=== PATIENT | male | born 1945 | race Two or more races ===

== ENCOUNTER 2016-09-10 14:03 | Inpatient (IN) | payer MEDICARE, OTHER ==
[~2016-09-10] VITALS: Ht 177.8 cm; Wt 101.2 kg
[~2016-09-10 14:03] MED LIST: ALLO300T PO; ATOR40TA78 PO; DIGO125T PO; LISI-167 PO; METF500T4 PO; METO-99 PO; METO50TA82 PO; TIOT18CA INH; WARF2.5T73 PO; WARF5TAB7 PO
[2016-09-10] MEDS ORDERED: SODIUM CHLORIDE 0.9% 1,000 ML IV ONE ×2 (14:32→15:40)
[2016-09-10] MEDS ORDERED: SODIUM CHLORIDE FLUSH 10ML SYR IVF ONE (15:00)
[2016-09-10] MEDS ORDERED: SODIUM CHLORIDE 0.9% 1,000ML IVBOLUS ONE (15:00)
[2016-09-10 15:02] LABS: BLOOD UREA NITROGEN 58 mg/dL (7-18)
[2016-09-10] MEDS ORDERED: SODIUM CHLORIDE FLUSH 10ML SYR IVF PRN (16:00)
[2016-09-10] MEDS: SODIUM CHLORIDE 0.9% 1,000 ML IV SCH ×2 (16:30→19:32)
[2016-09-10] MEDS ORDERED: LABETALOL 5MG/ML, 20ML IVPush PRN (16:30)
[2016-09-10] MEDS ORDERED: HYDROcodone/APAP 5/325 TABLET PO PRN (16:30)
[2016-09-10] MEDS ORDERED: ONDANSETRON 2MG/ML, 2ML IVPush PRN (16:30)
[2016-09-10] MEDS ORDERED: ONDANSETRON ODT 4 MG PO PRN (16:30)
[2016-09-10] MEDS ORDERED: POLYETHYLENE GLYCOL 17 GM PACKET PO PRN (16:30)
[2016-09-10 19:45] VITALS: BP 103/58
[2016-09-10 19:52] LABS: POTASSIUM,URINE RANDOM 56 mmol/L
[2016-09-10] MEDS ORDERED: IPRATROPIUM 0.5 MG/2.5 ML INHA NPPB SCH ×2 (20:00→22:30)
[2016-09-10] MEDS: ATORVASTATIN 40 MG TABLET PO SCH (20:06)
[2016-09-11 01:09] VITALS: BP 120/76
[2016-09-11] MEDS: SODIUM CHLORIDE 0.9% 1,000 ML IV SCH ×3 (02:57→20:53)
[2016-09-11 06:36] LABS: ASPARTATE AMINO TRANSFERASE 18 U/L (15-37); BLOOD UREA NITROGEN 37 mg/dL (7-18); TOTAL IRON BINDING CAPACITY 263 mcg/dL (250-450)
[2016-09-11 07:32] VITALS: BP 107/66
[2016-09-11] MEDS: SENNA/DOCUSATE TABLET PO SCH (08:44)
[2016-09-11 13:53] VITALS: BP 140/64
[2016-09-11 19:47] VITALS: BP 146/72
[2016-09-11 20:46] VITALS: BP 133/76
[2016-09-11] MEDS: ATORVASTATIN 40 MG TABLET PO SCH (20:53)
[2016-09-12 01:16] VITALS: BP 145/79
[2016-09-12] MEDS: SODIUM CHLORIDE 0.9% 1,000 ML IV SCH ×2 (02:30→08:30)
[2016-09-12 05:37] LABS: BLOOD UREA NITROGEN 22 mg/dL (7-18)
[2016-09-12 07:09] VITALS: BP 138/80
[2016-09-12] MEDS: SENNA/DOCUSATE TABLET PO SCH (08:30)
== END 2016-09-12 13:55 | disposition home or self-care (01) | DRG 682 ==
LOC: ED 15:39 → EDIP 15:40 → ED 16:03 → 5SO 19:46 → DCLOUNGE 09-12 13:35
PROVIDERS: ADMIT Hospitalist; ATTEND Hospitalist
DX: I12.9 Hypertensive chronic kidney disease with stage 1 through stage 4 chronic kidney disease, or unspecified chronic kidney disease (principal); N17.0 Acute kidney failure with tubular necrosis; E87.0 Hyperosmolality and hypernatremia; D68.69 Other thrombophilia; E87.1 Hypo-osmolality and hyponatremia; K21.9 Gastro-esophageal reflux disease without esophagitis; I95.9 Hypotension, unspecified; D64.9 Anemia, unspecified; E11.22 Type 2 diabetes mellitus with diabetic chronic kidney disease; E78.5 Hyperlipidemia, unspecified; E86.0 Dehydration; E87.5 Hyperkalemia; E87.8 Other disorders of electrolyte and fluid balance, not elsewhere classified; N18.2 Chronic kidney disease, stage 2 (mild); I35.0 Nonrheumatic aortic (valve) stenosis; I48.2 Chronic atrial fibrillation; J44.9 Chronic obstructive pulmonary disease, unspecified; M10.9 Gout, unspecified; Z79.01 Long term (current) use of anticoagulants; Z83.3 Family history of diabetes mellitus; Z86.73 Personal history of transient ischemic attack (TIA), and cerebral infarction without residual deficits; Z87.891 Personal history of nicotine dependence; Z79.84 Long term (current) use of oral hypoglycemic drugs; Z79.899 Other long term (current) drug therapy; Z88.6 Allergy status to analgesic agent
CPT/HCPCS: 36415; 71010; 76770; 80048; 80053; 80076; 80162; 81003; 82040; 82306; 82436; 82550; 82728; 83540; 83550; 83735; 83930; 83935; 83970; 84100; 84133; 84300; 84439; 84443; 84484; 84550; 85025; 85610; 85730; 93005; 93306; 96360; 96361; J7644; J7030

== ENCOUNTER 2019-09-07 10:45 | Outpatient (CLI) | payer MEDICARE, OTHER ==
[~2019-09-07 10:45] MED LIST changes: -DIGO125T PO; +DIGO125T85 PO; +METF500T17 PO; -METF500T4 PO; +REGADENOSON 0.4 MG/5 ML SYRINGE ONE; +WARF-36 PO; +WARF2.5T32 PO; -WARF2.5T73 PO; -WARF5TAB7 PO
== END 2019-09-07 23:59 | disposition home or self-care (01) ==
LOC: CFH 10:45
PROVIDERS: ATTEND Internal Medicine Cardiovascular Disease
DX: I08.3 Combined rheumatic disorders of mitral, aortic and tricuspid valves (principal); I25.10 Atherosclerotic heart disease of native coronary artery without angina pectoris; I11.9 Hypertensive heart disease without heart failure; E78.5 Hyperlipidemia, unspecified; I25.9 Chronic ischemic heart disease, unspecified; I48.91 Unspecified atrial fibrillation; I25.89 Other forms of chronic ischemic heart disease; I63.9 Cerebral infarction, unspecified; E11.9 Type 2 diabetes mellitus without complications
CPT/HCPCS: 78452; 93017; 93306; A9502; J2785